=== PATIENT | male | born 1990 | race American Indian/Alaskan Native ===

== ENCOUNTER 2016-09-14 02:56 | Emergency (ER) | payer BC ==
[2016-09-14 03:05] VITALS: BMI 31.0
[2016-09-14 03:13] VITALS: RESP 18; TEMP 97.7
[2016-09-14] MEDS ORDERED: Sodium Chloride 0.9% 1,000 ML IV STA (03:17)
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
[2016-09-14 03:56] LABS: ALB/GLOB RATIO 1.5 (1.1-1.8); ALBUMIN 4.5 g/dL (3.0-4.8); ALT/SGPT 42 U/L (7-56); AST/SGOT 36 U/L (15-59); BLOOD UREA NITROGEN 13 mg/dL (7-21); CALCIUM 9.2 mg/dL (8.4-10.5); GFR AFRICAN-AMERICAN > 60; GFR NON-AFRICAN AMERICAN > 60; LIPASE 28 U/L (23-300)
[2016-09-14 04:25] LABS: BASO # 0.02 K/mm3 (0.0-2.0); BASO % 0.2 % (0.0-3.0); EOS # 0.2 (0.0-0.7); EOS % 1.5 % (1.5-5.0); GRAN % 65.6 % (50.0-68.0); HEMOGLOBIN 13.7 gm/dL (14.0-18.0); LYMPH # 2.8 (1.2-3.4); LYMPH % 23.9 % (22.0-35.0); MEAN CELL VOLUME 76.4 fL (80.0-105.0); MEAN CORPUSCULAR HEMOGLOBIN 27.4 pg (25.0-35.0); MEAN CORPUSCULAR HGB CONC 35.9 g/dl (31.0-37.0); MEAN PLATELET VOLUME 10.3 fl (7.0-11.0); MONO # 1.1 (0.1-0.6); MONO % 8.8 % (1.0-6.0); PLATELET COUNT 206 10^3/uL (120.0-450.0); WHITE BLOOD COUNT 11.9 10^3/ul (4.5-11.0)
[2016-09-14 04:50] VITALS: BP 135/75; PULSE 65; O2SAT 99
== END 2016-09-14 04:50 | disposition home or self-care (01) ==
LOC: ED 02:56
DX: K52.9 Noninfective gastroenteritis and colitis, unspecified (principal)
CPT/HCPCS: 80053; 83690; 85025; 96361; 96374; 96375; 99284; G0480; J2405; J7040